=== PATIENT | female | born 1980 | race Caucasian/White ===

== ENCOUNTER 2017-01-25 17:50 | Emergency (ER) | payer OTHER ==
[~2017-01-25] VITALS: Ht 157.5 cm; Wt 72.6 kg
[~2017-01-25 17:50] MED LIST: CIPRO500 M1 PO; CLARITIN10 MG PO; CLONAZEPAM0.5 MG PO; LEXAPRO20 M1 PO; LIORESAL 10MG T10 MG PO; MOTRIN 600 MG600 MG PO; PATADAY 2.5 ML2.5 ML OPH; PERCOCET 5-3251 EACH PO; VITAMIN D2000 UNI1 PO; ZOFRAN4 M2 PO
[2017-01-25 18:10] VITALS: BP 140/74
[2017-01-25] MEDS ORDERED: IBUPROFEN800 M1 PO (18:32)
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
== END 2017-01-25 18:46 ==
LOC: ERH 17:50
DX: R51 Headache (principal)